=== PATIENT | male | born 1965 ===

== ENCOUNTER 2020-04-14 11:18 | Emergency (ER) | payer BC ==
[2020-04-14] MEDS ORDERED: Ondansetron 4 MG/2 ML SDV IV ONE (11:27)
[2020-04-14] MEDS ORDERED: Sodium Chloride 0.9% 1,000 ML IV ONE (11:27)
[2020-04-14] MEDS ORDERED: fentaNYL 100 MCG/2 ML SDV IVPUSH ONE (11:27)
[2020-04-14] MEDS ORDERED: Ketorolac 30 MG/ML SDV IVPUSH ONE (11:27)
--- NOTE | 2020-04-14 11:28 | EDM.PDOC ---
ED HPI GENERAL MEDICAL PROBLEM - General Chief Complaint: Genitourinary Problem Stated Complaint: EXTREME PAIN TESTICLE,STOMACH BACK HANDS NUMB Time Seen by Provider: 04/14/20 11:28 Source of Information: Reports: Patient, RN, RN Notes Reviewed History Limitations: Reports: No Limitations - History of Present Illness INITIAL COMMENTS - FREE TEXT/NARRATIVE: Pt presents to ER with c/o sudden onset of severe RLQ abdominal pain radiating between the right flank and right testicle. Pt rates the pain 10/10. Nothing alleviates or aggravates the pain. Denies fever, chills, vomiting, or diarrhea. Admits to nausea. Pt is in distress due to the pain. Onset: Today, Sudden Onset Date: 04/14/20 Onset Time: 10:00 Duration: Constant Location: Reports: Abdomen Quality: Reports: Ache, Sharp Severity: Severe Improves with: Reports: None Worsens with: Reports: None Associated Symptoms: Reports: No Other Symptoms - Related Data Allergies Allergy/AdvReac Type Severity Reaction Status Date / Time No Known Allergies Allergy Verified 04/14/20 11:36 Home Meds: Home Meds . [No Known Home Meds] 04/14/20 [History] Social & Family History - Family History Family Medical History: Noncontributory - Living Situation & Occupation Living situation: Reports: , with Spouse Occupation: Employed ED ROS GENERAL - Review of Systems Review Of Systems: Comprehensive ROS is negative, except as noted in HPI. ED EXAM, RENAL/ - Physical Exam Exam: See Below Exam Limited By: No Limitations General Appearance: Alert, Anxious, Moderate Distress (due to pain) Eye Exam: Bilateral Eye: Normal Inspection Nose: Normal Inspection Throat/Mouth: Normal Inspection, Normal Lips, Normal Voice, No Airway Compromise Head: Atraumatic, Normocephalic Neck: Normal Inspection Respiratory/Chest: No Respiratory Distress, Lungs Clear, Normal Breath Sounds, No Accessory Muscle Use, Chest Non-Tender Cardiovascular: Regular Rate, Rhythm, Tachycardia GI/Abdominal: Normal Bowel Sounds, Soft, No Distention, Pelvis Stable, Tender (RLQ). No: Guarding, Rigid, Rebound Back Exam: Normal Inspection, Full Range of Motion. No: CVA Tenderness (L), CVA Tenderness (R) Extremities: Normal Inspection Neurological: Alert, Oriented, CN II-XII Intact, No Motor/Sensory Deficits Psychiatric: Anxious Skin Exam: Warm, Intact, Normal Color, Diaphoretic Course - Vital Signs Last Recorded V/S: Last Vital Signs Temp 96.5 F L 04/14/20 11:18 Pulse 110 H 04/14/20 11:18 Resp 24 H 04/14/20 11:18 BP 145/54 H 04/14/20 11:18 Pulse Ox 98 04/14/20 11:18 - Orders/Labs/Meds Orders: Active Orders 24 hr Category Date Time Status UA RFX DANIEL AND CULT IF INDIC [URIN] Stat Lab 04/14/20 11:26 Ordered Labs: Laboratory Tests 04/14/20 04/14/20 Range/Units 11:41 11:41 WBC 4.8 L (5.0-10.0) 10^3/uL RBC 4.87 (4.6-6.2) 10^6/uL Hgb 14.6 (14.0-18.0) g/dL Hct 42.8 (40.0-54.0) % MCV 87.9 (80-100) fL MCH 30.0 (27.0-34.0) pg MCHC 34.1 (33.0-35.0) g/dL Plt Count 189 (150-450) 10^3/uL Neut % (Auto) 58.1 (42.2-75.2) % Lymph % (Auto) 32.4 (20.5-50.1) % Garden % (Auto) 6.4 (2-8) % Eos % (Auto) 2.9 (1.0-3.0) % Baso % (Auto) 0.2 (0.0-1.0) % Sodium 138 (136-145) mmol/L Potassium 3.7 (3.5-5.1) mmol/L Chloride 102 (98-107) mmol/L Carbon Dioxide 23 (21-32) mmol/L Anion Gap 16.7 H (7-13) mEq/L BUN 15 (7-18) mg/dL Creatinine 1.45 H (0.70-1.30) mg/dL Est Cr Clr Drug Dosing TNP Estimated GFR (MDRD) 51 BUN/Creatinine Ratio 10.3 (No establ ref range) Glucose 150 H (74-99) mg/dL Calcium 8.7 (8.5-10.1) mg/dL Total Bilirubin 0.7 (0.2-1.0) mg/dL AST 35 (15-37) U/L ALT 39 (16-63) U/L Alkaline Phosphatase 62 (46-116) U/L Total Protein 6.9 (6.4-8.2) g/dL Albumin 3.8 (3.4-5.0) g/dL Globulin 3.1 Albumin/Globulin Ratio 1.2 Meds: Medications Discontinued Medications Generic Name Dose Route Start Last Admin Trade Name René PRN Reason Stop Dose Admin Fentanyl 100 mcg 04/14/20 11:27 04/14/20 11:36 Sublimaze IVPUSH 04/14/20 11:28 100 mcg ONETIME ONE Administration Sodium Chloride 1,000 mls @ 999 mls/hr 04/14/20 11:27 04/14/20 11:37 Normal Saline IV 04/14/20 12:27 999 mls/hr .BOLUS ONE Administration Ketorolac Tromethamine 30 mg 04/14/20 11:27 04/14/20 11:37 Toradol IVPUSH 04/14/20 11:28 30 mg ONETIME ONE Administration Ondansetron HCl 4 mg 04/14/20 11:27 04/14/20 11:37 Zofran IV 04/14/20 11:28 4 mg ONETIME ONE Administration Tamsulosin HCl 0.4 mg 04/14/20 12:24 Flomax PO 04/14/20 12:25 ONETIME ONE - Radiology Interpretation Free Text/Narrative:: CT Abd/Pelvis: 1mm partially obstructing stone at Rt distal ureter per Rad. report. Departure - Departure Time of Disposition: 12:29 Disposition: Home, Self-Care 01 Condition: Good Clinical Impression: Kidney stone on right side - Discharge Information *PRESCRIPTION DRUG MONITORING PROGRAM REVIEWED*: Not Applicable *COPY OF PRESCRIPTION DRUG MONITORING REPORT IN PATIENT LEIA: Not Applicable Instructions: Kidney Stones, Renal Colic Forms: ED Department Discharge Additional Instructions: Follow up in clinic with your primary doctor if you do not pass the kidney stone by April 17. Return to ER if pain is uncontrolled. Rx: Hydrocodone APAP 5mg/325mg Rx: Flomax 0.4mg Rx: Zofran 4mg Drink plenty of water. Sepsis Event Note (ED) - Focused Exam Vital Signs: Vital Signs Temp Pulse Resp BP Pulse Ox 04/14/20 11:18 96.5 F L 110 H 24 H 145/54 H 98 - My Orders Last 24 Hours: My Active Orders 04/14/20 11:26 UA RFX DANIEL AND CULT IF INDIC [URIN] Stat - Assessment/Plan Last 24 Hours: My Active Orders 04/14/20 11:26 UA RFX DANIEL AND CULT IF INDIC [URIN] Stat
[2020-04-14 12:11] LABS: ANION GAP 16.7 mEq/L (7-13); CHLORIDE,CL 102 mmol/L (98-107); SODIUM,NA 138 mmol/L (136-145)
--- NOTE | 2020-04-14 12:18 | CT ---
EXAMINATION: Abdomen Pelvis wo Cont SEX: Male AGE: 54 years CLINICAL HISTORY: 54-year-old 175 pound male with severe right lower quadrant (RLQ pain). Rule out urolithiasis. Scan technique: Volume acquisition of data emergency unenhanced renal stone study (kidneys/ureters/bladder) abdomen and pelvis obtained with the patient lying supine on the Siemens multi slice scanner [place], [place]. All data archived in the PACS system for storage, reformatting axial/sagittal/coronal planes and study. Interpretation: Abnormal. 1. *Isolated tiny (1 mm) punctate calcification, distal right ureter (coronal slice #42; sagittal slice #62; and axial slice #108) i.e. ureterolithiasis with subtle associated proximal ureteral dilatation on the right. 2. Normal reniform size, axis and configuration bilaterally (subtle pyelocaliectasis right kidney). No nephrolithiasis. No signs of obstructive uropathy on the left. (Numerous phleboliths pelvis) Negative bladder. 3. Gallbladder, unenhanced liver, stomach, spleen, pancreas and adrenal glands unremarkable. Normal appendix RLQ. 4. Normal caliber aortoiliac vessels. Faint midline calcifications otherwise unremarkable prostate gland 5. Chronic lower lumbar (L5-S1) disc disease. No pathologic skeletal lesion, lumbar fracture or dislocation. CONCLUSION: Partially obstructing, tiny distal right ureterolith (stone).
[2020-04-14] MEDS ORDERED: Tamsulosin 0.4 MG Cap.ER PO ONE (12:24)
== END 2020-04-14 12:50 | disposition home or self-care (01) ==
LOC: DL.ED 11:18
DX: N20.2 Calculus of kidney with calculus of ureter (principal)
CPT/HCPCS: 36415; 74176; 80053; 85025; 96374; 96375; 99283; 99284; A9270; J1885; J2405; J3010; J7030